=== PATIENT | male | born 1965 | race Caucasian/White ===

== ENCOUNTER 2024-05-20 12:26 | Emergency (ER) | payer MEDICARE ==
[~2024-05-20] VITALS: Ht 190.5 cm; Wt 108.9 kg
[2024-05-20 12:42] VITALS: PULSE 93; RESP 18; TEMP 98.8
[2024-05-20 13:20] LABS: BASOPHILS % 0.6 % (0.0-1.0); EOSINOPHILS # (AUTO) 0.1 (0.0-0.4); EOSINOPHILS % 1.1 % (0.0-6.0); HEMOGLOBIN 14.1 g/dL (14.0-18.0); LYMPHOCYTES % 27.8 % (18.0-39.1); MEAN CORPUSCULAR HEMOGLOBIN 30.3 pg (28-32); MEAN CORPUSCULAR HGB CONC 32.8 g/dL (31-35); MEAN CORPUSCULAR VOLUME 92.5 fL (81-99); MONOCYTES # (AUTO) 0.6 (0.2-0.8); MONOCYTES % 8.6 % (4.4-11.3); NEUTROPHILS # (AUTO) 4.4 (2.1-6.9); NEUTROPHILS % 61.6 % (38.7-80.0); PLATELET COUNT 249 x10e3/uL (140-360); RED BLOOD COUNT 4.65 x10e6/uL (4.3-5.7); WHITE BLOOD COUNT 7.08 x10e3/uL (4.8-10.8)
[2024-05-20 13:29] LABS: INR 1.02; PARTIAL THROMBOPLASTIN TIME 28.1 seconds (23.8-35.5)
[2024-05-20] MEDS: SODIUM CHLORIDE 0.9% 1000ML 1,000 ML IV STA (13:29)
[2024-05-20] MEDS: ONDANSETRON HCL INJ 2MG/ML 2ML 2 MG/ML VIAL IV STA (13:29)
[2024-05-20 13:33] LABS: CORONAVIRUS COVID-19 AG NEGATIVE (NEGATIVE); INFLUENZA A AG NEGATIVE (NEGATIVE); INFLUENZA B AG NEGATIVE (NEGATIVE)
[2024-05-20 13:43] LABS: ALANINE AMINOTRANSFERASE 26 IU/L (0-55); ALBUMIN 4.1 g/dL (3.5-5.0); ALBUMIN/GLOBULIN RATIO 1.2 (0.8-2.0); ALKALINE PHOSPHATASE 81 IU/L (40-150); ANION GAP 20.3 mmol/L (8-16); BILIRUBIN,TOTAL 0.8 mg/dL (0.2-1.2); BLOOD UREA NITROGEN 10 mg/dL (7-26); BUN/CREATININE RATIO 13 (6-25); CALCIUM 8.9 mg/dL (8.4-10.2); CARBON DIOXIDE 20 mmol/L (22-29); CHLORIDE 105 mmol/L (98-107); CREATINE KINASE 158 IU/L (30-200); EST GLOMERULAR FILTRATION RATE 102 ML/MIN (>=60); GLUCOSE 132 mg/dL (74-118); MAGNESIUM 1.6 MG/DL (1.3-2.1); SODIUM 142 mmol/L (136-145); TOTAL PROTEIN 7.4 g/dL (6.5-8.1)
[2024-05-20 13:52] LABS: POTASSIUM 3.3 mmol/L (3.5-5.1); TROPONIN I < 0.001 ng/mL (0-0.300)
[2024-05-20] MEDS ORDERED: PROMETHAZINE12.5 M1 PO (14:27)
[2024-05-20] MEDS: PROMETHAZINE 12.5MG/ NACL 0.9% 12.5 MG/50 ML BAG IV ONE (15:08)
[2024-05-20] MEDS: DIPHENHYDRAMINE HCL INJ 50 MG/ML VIAL IV ONE (15:08)
[2024-05-20 15:39] VITALS: BP 149/96; PULSE 80; RESP 18; TEMP 98.3; O2SAT 98
== END 2024-05-20 15:44 | disposition home or self-care (01) ==
LOC: ER 12:47
DX: R05.9 Cough, unspecified (principal); B34.9 Viral infection, unspecified; F20.9 Schizophrenia, unspecified; Z11.52 Encounter for screening for COVID-19
CPT/HCPCS: 36415; 71045; 80053; 82550; 83735; 84484; 85025; 85610; 85730; 87428; 93005; 99284; J1200; J2405; J2470; J2550; J7030